=== PATIENT | male | born 1990 | race American Indian/Alaskan Native ===

== ENCOUNTER 2021-03-21 08:23 | Emergency (ER) | payer SELFPAY ==
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
[2021-03-21] MEDS ORDERED: TETANUS,DIPH,PERTUSS(ACELL) VACCINE 0.5 ML SYRINGE IM ONE (10:28)
[2021-03-21] MEDS ORDERED: MORPHINE 4 MG/1 ML INJ IM ONE (10:39)
[2021-03-21 12:19] VITALS: BP 134/80
== END 2021-03-21 12:18 | disposition other institution (70) ==
LOC: ED 08:23
DX: S02.609A Fracture of mandible, unspecified, initial encounter for closed fracture (principal); S02.831A Fracture of medial orbital wall, right side, initial encounter for closed fracture; Y04.8XXA Assault by other bodily force, initial encounter; Y93.89 Activity, other specified; Y92.89 Other specified places as the place of occurrence of the external cause; Y99.8 Other external cause status
CPT/HCPCS: 70450; 70486; 90471; 90715; 96372; 99285; J2270